=== PATIENT | female | born 1980 | race Caucasian/White ===

== ENCOUNTER 2017-10-27 11:29 | Day surgery (SDC) | payer OTHER ==
[~2017-10-27] VITALS: Ht 165.1 cm; Wt 85.0 kg
[~2017-10-27 11:29] MED LIST: None at this Time
[2017-10-27] MEDS ORDERED: LACTATED RINGERS 1,000 ML IV SCH (12:21)
[2017-10-27 12:35] VITALS: BP 142/86
[2017-10-27] MEDS ORDERED: ROCURONIUM 10MG/ML,5ML ONE (12:35)
[2017-10-27] MEDS ORDERED: MIDAZOLAM 1 MG/ML, 2ML ONE ×2 (12:35→13:04)
[2017-10-27] MEDS ORDERED: FENTANYL PF 100 MCG/2ML ONE ×2 (12:35→13:04)
[2017-10-27] MEDS ORDERED: PROPOFOL 10 MG/ML, 20ML ONE ×2 (12:35→13:04)
[2017-10-27] MEDS ORDERED: BUPIVACAINE 0.25% ONE (12:48)
[2017-10-27] MEDS ORDERED: EPINEPHRINE 1 MG/ML, 1ML ONE (12:48)
[2017-10-27] MEDS ORDERED: ONDANSETRON ODT 8 MG PO ONE (13:00)
[2017-10-27] MEDS ORDERED: ONDANSETRON 2MG/ML, 2ML IVPush PRN (13:00)
[2017-10-27] MEDS ORDERED: OXYcodone 5 MG/5 ML ORAL.SOL UDC PO PRN (13:00)
[2017-10-27] MEDS ORDERED: MEPERIDINE/PF 25MG/0.5ML IVPush PRN (13:00)
[2017-10-27] MEDS ORDERED: FENTANYL PF 100 MCG/2ML IV PRN (13:00)
[2017-10-27] MEDS ORDERED: morphine SULFATE 10 MG/ML, 1ML IV PRN (13:00)
[2017-10-27] MEDS ORDERED: hydrALAzine 20 MG/ML, 1ML IV PRN (13:00)
[2017-10-27] MEDS ORDERED: HYDROmorphone 1 MG/ML, 1ML IV PRN (13:00)
[2017-10-27] MEDS ORDERED: ACETAMINOPHEN 500 MG TABLET PO ONE (13:00)
[2017-10-27] MEDS ORDERED: OxyconTIN ER 10 MG TAB.ER PO ONE (13:00)
[2017-10-27] MEDS ORDERED: LABETALOL 5MG/ML, 20ML IV PRN (13:00)
[2017-10-27] MEDS ORDERED: PROMETHAZINE 12.5 MG SUPP PR PRN (13:00)
[2017-10-27] MEDS ORDERED: GABAPENTIN 300 MG CAPSULE PO ONE (13:00)
[2017-10-27] MEDS ORDERED: ROCURONIUM 10 MG/ML,10ML ONE (13:04)
[2017-10-27] MEDS ORDERED: GLYCOPYRROLATE 0.2MG/1ML, 5ML ONE (13:04)
[2017-10-27] MEDS ORDERED: LIDOCAINE 4%, 4 ML SYR/CANN TP ONE (13:04)
[2017-10-27] MEDS ORDERED: DEXAMETHASONE 4 MG/ML, 1ML ONE ×2 (13:04→13:12)
[2017-10-27] MEDS ORDERED: CEFAZOLIN 1,000 MG ONE ×3 (13:04→13:12)
[2017-10-27] MEDS ORDERED: NEOSTIGMINE 1 MG/ML, 10ML ONE ×2 (13:04→13:39)
[2017-10-27] MEDS ORDERED: BUPIVACAINE/PF 0.25% INFIL ONE (13:31)
[2017-10-27] MEDS ORDERED: GLYCOPYRROLATE 0.4 MG/2 ML, 2ML ONE (13:39)
== END 2017-10-27 17:45 ==
LOC: OUT 11:29
PROVIDERS: ATTEND Obstetrics & Gynecology
DX: Z30.2 Encounter for sterilization (principal); G89.18 Other acute postprocedural pain; E28.2 Polycystic ovarian syndrome; Z91.030 Bee allergy status; Z98.890 Other specified postprocedural states
CPT/HCPCS: 36415; 58670; 84703; 88302; J0171; J0690; J1100; J2250; J2704; J2710; J3010; J3490; Q0162